=== PATIENT | male | born 1990 | race Caucasian/White ===

== ENCOUNTER 2017-05-30 02:00 | Emergency (ER) | payer SELFPAY ==
[~2017-05-30] VITALS: Ht 182.9 cm; Wt 81.1 kg
[2017-05-30 02:02] VITALS: BP 125/75
[2017-05-30] MEDS ORDERED: IBUPROFEN 800 MG TABLET ONE (03:51)
[2017-05-30] MEDS ORDERED: IBUPROFEN 800 MG TABLET PO ONE (04:00)
== END 2017-05-30 03:56 | disposition home or self-care (01) ==
LOC: ED 02:37
DX: M25.511 Pain in right shoulder (principal); G89.11 Acute pain due to trauma
CPT/HCPCS: 99284

== ENCOUNTER 2017-07-22 04:01 | Emergency (ER) | payer OTHER ==
[~2017-07-22] VITALS: Ht 182.9 cm; Wt 81.6 kg
[2017-07-22 04:02] VITALS: BP 136/89
[2017-07-22] MEDS ORDERED: IBUPROFEN 200 MG TABLET PO ONE (04:30)
[2017-07-22] MEDS ORDERED: IBUPROFEN 200 MG TABLET ONE (04:34)
== END 2017-07-22 04:46 | disposition home or self-care (01) ==
LOC: ED 04:35
DX: G89.29 Other chronic pain (principal); M25.511 Pain in right shoulder
CPT/HCPCS: 99282

== ENCOUNTER 2017-12-01 01:55 | Emergency (ER) | payer SELFPAY ==
[~2017-12-01] VITALS: Ht 180.3 cm; Wt 77.6 kg
[2017-12-01 01:55] VITALS: BP 123/72
== END 2017-12-01 02:45 | disposition home or self-care (01) ==
LOC: ED 02:39
DX: M25.511 Pain in right shoulder (principal)
CPT/HCPCS: 99283

== ENCOUNTER 2018-04-05 17:28 | Emergency (ER) | payer SELFPAY ==
[~2018-04-05] VITALS: Ht 182.9 cm; Wt 82.1 kg
[2018-04-05 17:57] LABS: BASOPHILS # (AUTO) 0.02 x10^3/uL (0-0.1); BASOPHILS % (AUTO) 0 % (0-1); EOSINOPHILS # (AUTO) 0.14 x10^3/uL (0-0.4); EOSINOPHILS % (AUTO) 3 % (1-7); LYMPHOCYTES # (AUTO) 1.52 x10^3/uL (1-3.4); LYMPHOCYTES % (AUTO) 30 % (22-44); MD NO; MEAN CORPUSCULAR HEMOGLOBIN 30.2 pg (27.5-34.5); MEAN CORPUSCULAR HGB CONC 34.3 g/dL (33.2-36.2); MONOCYTES # (AUTO) 0.88 x10^3/uL (0.2-0.8); MONOCYTES % (AUTO) 17 % (2-9); NEUTROPHILS # (AUTO) 2.57 x10^3/uL (1.8-6.8); NEUTROPHILS % (AUTO) 50 % (42-75); PLATELET COUNT 188 x10^3/uL (130-400); RED BLOOD COUNT 4.79 x10^6/uL (4.38-5.82)
[2018-04-05 18:09] LABS: ALBUMIN 3.7 g/dL (3.4-5.0); ANION GAP 5 mmol/L (5-15); CALCIUM 8.7 mg/dL (8.5-10.1); CHLORIDE 110 mmol/L (98-107)
[2018-04-05 18:19] LABS: ALANINE AMINOTRANSFERASE 21 U/L (12-78); ALKALINE PHOSPHATASE 80 U/L (45-117); BILIRUBIN,TOTAL 0.3 mg/dL (0.2-1.0); CREATININE 0.93 mg/dL (0.7-1.3); TOTAL PROTEIN 6.9 g/dL (6.4-8.2)
--- NOTE | 2018-04-05 19:53 | NUR ---
pt called to room from lobby
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
--- NOTE | 2018-04-05 20:25 | NUR ---
PT AMBULATORY TO RESTROOM WITH STEADY GAIT. CLEAN CATCH UA COLLECTED AND SENT TO LAB. RESTING COMFORTABLY, AWAITING EVAL BY ERP. CALL LIGHT IN REACH. VSS.
[2018-04-05 20:30] LABS: MICROSCOPIC NOT IND
--- NOTE | 2018-04-05 20:30 | NUR ---
ERP AT BEDSIDE FOR EVALUATION.
[2018-04-05 20:38] LABS: CULTURE INDICATED? NO
[2018-04-05] MEDS ORDERED: AZITHROMYCIN 500 MG TABLET PO STA (20:46)
[2018-04-05] MEDS ORDERED: CEFTRIAXONE 250 MG IM ONE (21:00)
[2018-04-05] MEDS ORDERED: AZITHROMYCIN 500 MG TABLET ONE (21:12)
[2018-04-05] MEDS ORDERED: CEFTRIAXONE 250 MG ONE (21:12)
[2018-04-05 21:17] VITALS: BP 129/71
--- NOTE | 2018-04-05 21:18 | NUR ---
PT MEDICATED NOTED PER ORDER. RESTING IN POSITION OF COMFORT. DENIES NEED TO USE RESTROOM. VSS. CALL LIGHT IN REACH. AWAITING RECHECK FROM ERP.
== END 2018-04-05 21:33 | disposition home or self-care (01) ==
LOC: ED 21:15
DX: N34.1 Nonspecific urethritis (principal)
CPT/HCPCS: 36415; 80053; 81003; 85025; 87491; 87591; 96372; 99283; J0696